=== PATIENT | male | born 1985 | race Caucasian/White ===

== ENCOUNTER 2021-05-20 01:54 | Emergency (ER) | payer MEDICAID ==
[~2021-05-20] VITALS: Ht 182.9 cm; Wt 120.2 kg
[~2021-05-20 01:54] MED LIST: CIPR500T4 PO; CITA20TA15 PO
--- NOTE | 2021-05-20 01:55 | NUR ---
PT APRIL MAYS. TAKEN TO BED 4
[2021-05-20 01:56] VITALS: BP 170/112
--- NOTE | 2021-05-20 01:56 | NUR ---
Patient BIB by JIMMY. C/O Syncope x today. Per reported, patient walked down street and had one syncope episode, woke up with left side pain-neck, shoulder, chest and leg pain. Patient reported, was smoking "weed" tonight.
--- NOTE | 2021-05-20 02:12 | NUR ---
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 Patient tolerated well.
--- NOTE | 2021-05-20 02:16 | NUR ---
Dr. Ochoa at bedside to exam patient.
[2021-05-20 02:19] LABS: BASOPHILS # (AUTO) 0.1 K/uL (0.00-0.22); BASOPHILS % (AUTO) 0.9 % (0.0-2.0); EOSINOPHILS # (AUTO) 0.2 K/uL (0-0.4); EOSINOPHILS % (AUTO) 1.3 % (0.0-4.0); HEMATOCRIT 45.5 % (36-52); HEMOGLOBIN 15.7 g/dL (12.0-18.0); LYMPHOCYTES # (AUTO) 3.7 K/uL (2.0-11.5); LYMPHOCYTES % (AUTO) 31.1 % (20.5-51.1); MEAN CORPUSCULAR HEMOGLOBIN 31 pg (27-31); MEAN CORPUSCULAR HGB CONC 35 g/dL (33-37); MEAN CORPUSCULAR VOLUME 89.5 fL (80-94); MONOCYTES # (AUTO) 1.1 K/uL (0.8-1.0); MONOCYTES % (AUTO) 9.4 % (1.7-9.3); NEUTROPHILS # (AUTO) 6.9 K/uL (1.8-7.7); NEUTROPHILS % (AUTO) 57.3 % (42.2-75.2); PLATELET COUNT (AUTO) 287 K/uL (140-450); RED BLOOD CELL COUNT(AUTO) 5.08 MIL/uL (4.20-6.10); RED CELL DISTRIBUTION WIDTH 13.7 % (11.6-13.7)
--- NOTE | 2021-05-20 02:35 | NUR ---
Patient returned back from CT scan.
[2021-05-20 02:37] LABS: ALBUMIN 3.2 g/dL (3.4-5.0); CARBON DIOXIDE 29.1 mmol/L (21-32); CREATININE 0.9 mg/dL (0.6-1.3); POTASSIUM 4.1 mmol/L (3.5-5.1); TOTAL BILIRUBIN 0.4 mg/dL (0.0-1.0)
[2021-05-20] MEDS ORDERED: NAPR-54 PO (04:41)
[2021-05-20 05:10] VITALS: BP 142/82
--- NOTE | 2021-05-20 05:12 | NUR ---
Patient called his family/friend for a ride.
== END 2021-05-20 05:10 | disposition home or self-care (01) ==
LOC: MED 01:54
DX: S20.219A Contusion of unspecified front wall of thorax, initial encounter (principal); S09.90XA Unspecified injury of head, initial encounter; S19.9XXA Unspecified injury of neck, initial encounter; R55 Syncope and collapse; R03.0 Elevated blood-pressure reading, without diagnosis of hypertension; F12.90 Cannabis use, unspecified, uncomplicated; Z88.6 Allergy status to analgesic agent; Z88.8 Allergy status to other drugs, medicaments and biological substances; Z79.899 Other long term (current) drug therapy; W19.XXXA Unspecified fall, initial encounter; Y93.01 Activity, walking, marching and hiking; Y92.89 Other specified places as the place of occurrence of the external cause; Y99.8 Other external cause status
CPT/HCPCS: 36415; 70450; 71045; 72125; 80053; 84484; 85025; 85379; 93005; 99285; Q0092